=== PATIENT | male | born 1995 | race African-American/Black ===

== ENCOUNTER 2019-10-17 18:12 | Emergency (ER) | payer SELFPAY ==
[~2019-10-17] VITALS: Ht 180.3 cm; Wt 70.9 kg
[2019-10-17 18:31] VITALS: BP 137/69; TEMP 97.9
[2019-10-17 21:10] VITALS: PULSE 62
== END 2019-10-17 21:13 | disposition home or self-care (01) ==
LOC: COL.ER 18:12
DX: S89.92XA Unspecified injury of left lower leg, initial encounter (principal); X50.0XXA Overexertion from strenuous movement or load, initial encounter; Y92.009 Unspecified place in unspecified non-institutional (private) residence as the place of occurrence of the external cause; Y93.67 Activity, basketball